=== PATIENT | female | born 1990 | race Caucasian/White ===

== ENCOUNTER 2017-03-25 07:06 | Emergency (ER) | payer MEDICAID ==
[~2017-03-25] VITALS: Ht 167.6 cm; Wt 106.6 kg
[2017-03-25 07:15] VITALS: BP_SYST 121
[2017-03-25 09:39] LABS: INFLUENZA A&B ANTIGEN SCREEN NEGATIVE FOR A & B (NEGATIVE); STREPTOCOCCUS A SCREEN (RAPID) NEGATIVE (NEGATIVE)
[2017-03-25 09:55] VITALS: BP_SYST 132
== END 2017-03-25 09:55 | disposition home or self-care (01) ==
LOC: SED 07:06
DX: J20.9 Acute bronchitis, unspecified (principal); J45.909 Unspecified asthma, uncomplicated
CPT/HCPCS: 36415; 86403; 86710; 87081; 99284